=== PATIENT | female | born 1995 | race Caucasian/White ===

== ENCOUNTER 2017-09-17 00:08 | Emergency (ER) | payer SELFPAY ==
[2017-09-17] MEDS ORDERED: Ondansetron 4 MG Tab.DIS PO ONE ×2 (00:39→01:40)
[2017-09-17] MEDS ORDERED: Acetaminophen/oxyCODONE 325-5 MG Tab PO ONE (00:39)
[2017-09-17] MEDS ORDERED: Ketorolac 60 MG/2 ML SDV IM ONE (02:09)
--- NOTE | 2017-09-17 02:36 | EDM.PDOC ---
ED HPI GENERAL MEDICAL PROBLEM - General Chief Complaint: Gastrointestinal Problem Stated Complaint: VOMITING/RT SIDE PAIN Time Seen by Provider: 09/17/17 00:28 Source of Information: Reports: Patient History Limitations: Reports: No Limitations - History of Present Illness INITIAL COMMENTS - FREE TEXT/NARRATIVE: This patient comes in complaining of right lower quadrant abdominal pain. She's had some urinary urgency but no actual burning on urination. She said this happened previously when she was and was told it was a urinary tract infection. She takes an oral contraceptive doesn't think she could be . She denies any fever left flank Pain Score (Numeric/FACES): 6 - Related Data Allergies Allergy/AdvReac Type Severity Reaction Status Date / Time No Known Allergies Allergy Verified 09/17/17 00:23 Home Meds: Home Meds NK [No Known Home Meds] 09/17/17 [History] Past Medical History [employer] History: Reports: - Past Surgical History HEENT Surgical History: Reports: Tonsillectomy Social & Family History - Tobacco Use Smoking Status *Q: Never Smoker - Caffeine Use Caffeine Use: Reports: Soda - Recreational Drug Use Recreational Drug Use: No ED ROS GENERAL - Review of Systems Review Of Systems: ROS reveals no pertinent complaints other than HPI. ED EXAM, GI/ABD - Physical Exam Exam: See Below Exam Limited By: No Limitations General Appearance: Alert, Moderate Distress, Obese Respiratory/Chest: Lungs Clear Cardiovascular: Regular Rate, Rhythm GI/Abdominal Exam: Soft, Non-Tender Back Exam: No: CVA Tenderness (R), CVA Tenderness (L) Extremities: Normal Inspection Neurological: Alert, Oriented Course - Vital Signs Last Recorded V/S: Last Vital Signs Temp 36.6 C 09/17/17 00:25 Pulse 60 09/17/17 00:25 Resp 18 09/17/17 00:25 BP 148/71 H 09/17/17 00:25 Pulse Ox 96 09/17/17 00:25 - Orders/Labs/Meds Orders: Active Orders 24 hr Category Date Time Status Abdomen Pelvis wo Cont [CT] Stat Exams 09/17/17 01:20 Taken UA W/MICROSCOPIC [URIN] Urgent Lab 09/17/17 00:34 Ordered Labs: Laboratory Tests 09/17/17 Range/Units 00:34 Urine Color Yellow Urine Appearance Slightly cloudy Urine pH 5.0 (4.5-8.0) Ur Specific [place] 1.030 (1.008-1.030) Urine Protein 30 H (NEGATIVE) mg/dL Urine Glucose (UA) Normal (NEGATIVE) mg/dL Urine Ketones 15 H (NEGATIVE) mg/dL Urine Occult Blood Large (NEGATIVE) Urine Nitrite Negative (NEGATIVE) Urine Bilirubin Small (NEGATIVE) Urine Urobilinogen 1 (NORMAL) mg/dL Ur Leukocyte Esterase Small (NEGATIVE) Urine RBC 30-40 H (0-5) Urine WBC 5-10 H (0-5) Ur Epithelial Cells Moderate Amorphous Sediment Not seen Urine Bacteria Moderate Urine Mucus Not seen Meds: Medications Discontinued Medications Generic Name Dose Route Start Last Admin Trade Name Freq PRN Reason Stop Dose Admin Ketorolac Tromethamine 60 mg 09/17/17 02:09 09/17/17 02:13 Toradol IM 09/17/17 02:10 60 mg ONETIME ONE Administration Ondansetron HCl 4 mg 09/17/17 00:39 09/17/17 00:47 Zofran Odt PO 09/17/17 00:40 4 mg ONETIME ONE Administration Ondansetron HCl 4 mg 09/17/17 01:40 09/17/17 01:48 Zofran Odt PO 09/17/17 01:41 4 mg ONETIME ONE Administration Oxycodone/Acetaminophen 2 tab 09/17/17 00:39 09/17/17 00:47 Percocet 325-5 Mg PO 09/17/17 00:40 2 tab ONETIME ONE Administration - Re-Assessments/Exams Free Text/Narrative Re-Assessment/Exam: 09/17/17 02:32 The patient received Percocet 5/325 #2 tablets by mouth and Zofran ODT 4 mg sublingual. This seemed to have fairly good pain relief initially but later she had or pain to was given Toradol 60 mg IM. I reviewed the CT scan looks like she has a stone at the right ureterovesical junction 09/17/17 02:33 Departure - Departure Time of Disposition: 02:34 Disposition: Home, Self-Care 01 Condition: Fair Clinical Impression: Ureterolithiasis - Discharge Information Referrals: Autumn Castro MD [Primary Care Provider] - Additional Instructions: This stone is down right next to the bladder so it will probably pass very soon. For pain you may use Percocet 5/325 one or 2 tablets every 4 hours as needed. Ibuprofen is similar to the injection you get in the ER and that may help a lot also. Be sure to drink plenty of water every day. If your conditions is not improving within several days indefinitely any time you're worse either return to the ER her follow-up with your doctor or health care provider. The pain medication oxycodone can cause sedation and impair driving - My Orders Last 24 Hours: My Active Orders 09/17/17 00:34 UA W/MICROSCOPIC [URIN] Urgent 09/17/17 01:20 Abdomen Pelvis wo Cont [CT] Stat - Assessment/Plan Last 24 Hours: My Active Orders 09/17/17 00:34 UA W/MICROSCOPIC [URIN] Urgent 09/17/17 01:20 Abdomen Pelvis wo Cont [CT] Stat
== END 2017-09-17 02:30 | disposition home or self-care (01) ==
LOC: JP.ED 00:08
DX: N13.2 Hydronephrosis with renal and ureteral calculous obstruction (principal)
CPT/HCPCS: 74176; 81001; 96372; 99284; A9270; J1885